=== PATIENT | female | born 1940 | race Caucasian/White ===

== ENCOUNTER 2019-12-06 12:39 | Inpatient (IN) | payer MEDICARE, BC ==
[~2019-12-06] VITALS: Ht 165.1 cm; Wt 56.5 kg
--- NOTE | 2019-12-06 13:13 | NUR ---
ED Nurse Note: Pt brought in by ambulance. Pt was with corporate intern today and corporate intern told ambulance that she almost fell, she caught pt, and pt vomited all over her clothes. Pt has hx of dementia. Pt is alert and orientedx0, ambulatory with assist. Pt is set up on monitor. Pt speaks "yes, no" but not in response to questions. Pt is confused, unable to follow commands but cooperative.
--- NOTE | 2019-12-06 13:16 | Emergency Room Report ---
History of Present Illness General Chief Complaint: Syncope Source: EMS Present Illness HPI Patient is an 79-year-old female presents after syncopal episode. Patient was brought in by EMS. She denies any current pain. Patient states that she recalls events. History is markedly limited by patient's poor cooperation are poor historian Allergies: Coded Allergies: PENICILLINS (Verified Allergy, Unknown, 12/06/19) Patient History Past Medical History: see triage record Reviewed Nursing Documentation: PMH: Agreed; PSxH: Agreed Nursing Documentation-PMH Past Medical History: No History, Except For Hx Hypertension: Yes Hx Neurological Problems: Yes - Alzheimers Hx Cerebrovascular Accident: Yes Review of Systems All Other Systems: limited - Historian Physical Exam Vital Signs Date Time Temp Pulse Resp B/P (MAP) Pulse Ox O2 Delivery O2 Flow Rate FiO2 12/06/19 12:44 98.8 79 16 142/83 (102) 98 Room Air Sp02 EP Interpretation: reviewed, normal General Appearance: normal inspection, well appearing, no apparent distress, alert Head: atraumatic ENT: normal ENT inspection, hearing grossly normal, normal voice Neck: normal inspection, full range of motion, supple, no bony tend Respiratory: normal inspection, lungs clear, normal breath sounds, no respiratory distress, no retraction, no wheezing Cardiovascular #1: regular rate, rhythm, no edema Gastrointestinal: normal inspection, normal bowel sounds, non tender, soft, no guarding, no hernia Genitourinary: no CVA tenderness Musculoskeletal: normal inspection, back normal, normal range of motion Neurologic: alert, oriented x3, responsive, normal inspection Psychiatric: normal inspection, judgement/insight normal, mood/affect normal Medical Decision Making Diagnostic Impression: Primary Impression: Syncope Additional Impression: Lactic acidosis ER Course Patient presented for syncope. Differential diagnosis included but was not limited to arrhythmia, orthostatic hypotension, hypovolemia, vasovagal, anemia among others. Because of complexity of patient's case laboratory tests and imaging studies were ordered.Patient was given IV fluids. CT imaging showed no evidence of acute intracranial pathology. Lactic acid was noted to be somewhat elevated. Patient was empirically given Levaquin after blood cultures were obtained. Urinalysis showed no evidence of infection. Patient CBC was normal. Dr. Nanci Singh was contacted for inpatient management Labs Test 12/06/19 13:15 12/06/19 14:20 12/06/19 16:17 White Blood Count 9.8 K/UL (4.8-10.8) Red Blood Count 4.25 M/UL (4.20-5.40) Hemoglobin 13.7 G/DL (12.0-16.0) Hematocrit 39.3 % (37.0-47.0) Mean Corpuscular Volume 92 FL (80-99) Mean Corpuscular Hemoglobin 32.1 PG (27.0-31.0) Mean Corpuscular Hemoglobin Concent 34.8 G/DL (32.0-36.0) Red Cell Distribution Width 12.4 % (11.6-14.8) Platelet Count 317 K/UL (150-450) Mean Platelet Volume 6.2 FL (6.5-10.1) Neutrophils (%) (Auto) 77.5 % (45.0-75.0) Lymphocytes (%) (Auto) 13.9 % (20.0-45.0) Monocytes (%) (Auto) 5.3 % (1.0-10.0) Eosinophils (%) (Auto) 2.7 % (0.0-3.0) Basophils (%) (Auto) 0.6 % (0.0-2.0) Prothrombin Time 10.5 SEC (9.30-11.50) Prothromb Time International Ratio 1.0 (0.9-1.1) Activated Partial Thromboplast Time 25 SEC (23-33) D-Dimer 0.47 mg/L FEU (0.00-0.49) Sodium Level 143 MMOL/L (136-145) Potassium Level 3.6 MMOL/L (3.5-5.1) Chloride Level 106 MMOL/L (98-107) Carbon Dioxide Level 27 MMOL/L (21-32) Anion Gap 10 mmol/L (5-15) Blood Urea Nitrogen 12 mg/dL (7-18) Creatinine 1.0 MG/DL (0.55-1.30) Estimat Glomerular Filtration Rate mL/min (>60) Glucose Level 167 MG/DL (74-106) Calcium Level 8.9 MG/DL (8.5-10.1) Total Bilirubin 0.5 MG/DL (0.2-1.0) Aspartate Amino Transf (AST/SGOT) 12 U/L (15-37) Alanine Aminotransferase (ALT/SGPT) 14 U/L (12-78) Alkaline Phosphatase 105 U/L (46-116) Troponin I 0.009 ng/mL (0.000-0.056) Pro-B-Type Natriuretic Peptide 185 pg/mL (0-125) Total Protein 7.0 G/DL (6.4-8.2) Albumin 3.8 G/DL (3.4-5.0) Globulin 3.2 g/dL Albumin/Globulin Ratio 1.2 (1.0-2.7) Lipase 143 U/L (73-393) Thyroid Stimulating Hormone (TSH) 6.174 uiU/mL (0.358-3.740) Urine Color Pale yellow Urine Appearance Clear Urine pH 8 (4.5-8.0) Urine Specific [place] 1.010 (1.005-1.035) Urine Protein Negative (NEGATIVE) Urine Glucose (UA) Negative (NEGATIVE) Urine Ketones Negative (NEGATIVE) Urine Blood Negative (NEGATIVE) Urine Nitrite Negative (NEGATIVE) Urine Bilirubin Negative (NEGATIVE) Urine Urobilinogen Normal MG/DL (0.0-1.0) Urine Leukocyte Esterase Negative (NEGATIVE) Urine RBC 0-2 /HPF (0 - 2) Urine WBC 0-2 /HPF (0 - 2) Urine Squamous Epithelial Cells Few /LPF (NONE/OCC) Urine Amorphous Sediment Few /LPF (NONE) Urine Bacteria Moderate /HPF (NONE) Lactic Acid Level 1.40 mmol/L (0.66-2.22) EKG Diagnostic Results Rate: normal Rhythm: NSR ST Segments: no acute changes Last Vital Signs Date Time Temp Pulse Resp B/P (MAP) Pulse Ox O2 Delivery O2 Flow Rate FiO2 12/06/19 12:44 98.8 79 16 142/83 (102) 98 Room Air Status: improved Disposition: ADMITTED INPATIENT Condition: Stable Eric Barrera MD Dec 06, 2019 13:16
[2019-12-06 13:30] VITALS: BP 135/76
[2019-12-06 13:44] LABS: BASOPHILS % (AUTO) 0.6 % (0.0-2.0); EOSINOPHILS % (AUTO) 2.7 % (0.0-3.0); HEMATOCRIT 39.3 % (37.0-47.0); HEMOGLOBIN 13.7 G/DL (12.0-16.0); LYMPHOCYTES % (AUTO) 13.9 % (20.0-45.0); MEAN CORPUSCULAR VOLUME 92 FL (80-99); MONOCYTES % (AUTO) 5.3 % (1.0-10.0); NEUTROPHILS % (AUTO) 77.5 % (45.0-75.0); PLATELET COUNT 317 K/UL (150-450); RED BLOOD COUNT 4.25 M/UL (4.20-5.40); RED CELL DISTRIBUTION WIDTH 12.4 % (11.6-14.8); WHITE BLOOD COUNT 9.8 K/UL (4.8-10.8)
[2019-12-06 14:11] LABS: ANION GAP 10 mmol/L (5-15); BLOOD UREA NITROGEN 12 mg/dL (7-18); CALCIUM 8.9 MG/DL (8.5-10.1); CARBON DIOXIDE 27 MMOL/L (21-32); CHLORIDE 106 MMOL/L (98-107); POTASSIUM 3.6 MMOL/L (3.5-5.1); SODIUM 143 MMOL/L (136-145)
[2019-12-06 14:24] LABS: ALANINE AMINOTRANSFERASE 14 U/L (12-78); ALBUMIN 3.8 G/DL (3.4-5.0); ALBUMIN/GLOBULIN RATIO 1.2 (1.0-2.7); ALKALINE PHOSPHATASE 105 U/L (46-116); ASPARTATE AMINO TRANSFERASE 12 U/L (15-37); BILIRUBIN,TOTAL 0.5 MG/DL (0.2-1.0)
[2019-12-06 15:12] LABS: APPEARANCE,URINE CLEAR; BILIRUBIN, URINE NEGATIVE (NEGATIVE); COLOR,URINE PALE YELLOW; GLUCOSE, URINE (UA) NEGATIVE (NEGATIVE); KETONES,URINE NEGATIVE (NEGATIVE); LEUKOCYTE ESTERASE ,URINE NEGATIVE (NEGATIVE); NITRITE,URINE NEGATIVE (NEGATIVE); PH,URINE 8 (4.5-8.0); PROTEIN,URINE NEGATIVE (NEGATIVE); UROBILINOGEN,URINE NORMAL MG/DL (0.0-1.0)
--- NOTE | 2019-12-06 15:41 | Diagnostic Imaging Report ---
EXAM: CT Head Without Intravenous Contrast CLINICAL HISTORY: AMS TECHNIQUE: Axial computed tomography images of the head/brain without intravenous contrast. CTDI is 62.7 mGy and DLP is 1332.7 mGy-cm. One or more of the following dose reduction techniques were used: automated exposure control, adjustment of the mA and/or kV according to patient size, use of iterative reconstruction technique. COMPARISON: No relevant prior studies available. FINDINGS: Brain: No intracranial hemorrhage or mass effect. Chronic left basal ganglia lacunar infarct involving the caudate nucleus and internal capsule. No clear acute large vessel territorial infarct. Generalized involutional and microvascular ischemic changes.. Ventricles: Unremarkable. No ventriculomegaly. Bones/joints: Unremarkable. No acute fracture. Soft tissues: Unremarkable. Sinuses: Unremarkable as visualized. No acute sinusitis. Mastoid air cells: Unremarkable as visualized. No mastoid effusion. IMPRESSION: No acute intracranial process. Involutional and microvascular ischemic changes.
--- NOTE | 2019-12-06 16:17 | NUR ---
ED Nurse Note: Reflex lactic sent.
--- NOTE | 2019-12-06 16:22 | Diagnostic Imaging Report ---
EXAM: XR Chest, 1 View CLINICAL HISTORY: SOB TECHNIQUE: Frontal view of the chest. COMPARISON: No relevant prior studies available. FINDINGS: Lungs: Mild left basilar atelectasis. No consolidation. Pleural space: Unremarkable. No pneumothorax. Heart: Unremarkable. No cardiomegaly. Mediastinum: Calcified aorta. Bones/joints: Degenerative changes. IMPRESSION: Mild left basilar atelectasis. No consolidation.
--- NOTE | 2019-12-06 16:45 | NUR ---
ED Nurse Note: Pt transferred to Tele floor. Pt has all belongings. Pt taken up with monitor. Pt alert and orientedx0.
--- NOTE | 2019-12-06 18:50 | NUR ---
NURSE NOTES: Patient stable AOx0. Verbal response is inappropriate or none at all and laughs at random intervals. desk monitor placed on new and david to be NSR. RR even and unlabored on RA. No s/sx of distress. Lung sounds clear. Bowel sounds present. Clothes and cane at bedside. Bed low and locked. Bed alarm on. Side rails up x2, call light within reach. Fall precautions on including yellow gown, yellow socks and sign up. Will continue to monitor.
--- NOTE | 2019-12-06 19:21 | NUR ---
HAND-OFF: Report given to Norberto Shelton RN. Patient stable. Endorsed plan of care.
--- NOTE | 2019-12-06 19:22 | NUR ---
HAND-OFF: Report given to Victor Manuel Gusman RN. Patient stable. Endorsed plan of care.
--- NOTE | 2019-12-06 19:30 | NUR ---
NURSE NOTES: Received patient from Yun YOUNG. Patient in bed, on room air, no signs of respiratory distress. Bed in low position, locked, bed alarm on, call light within reach. Patient is awake, alert but confused, oriented to self.
[2019-12-06 20:00] VITALS: BP 147/80
[2019-12-07] VITALS: BP 138/71
[2019-12-07 04:00] VITALS: BP 144/71
--- NOTE | 2019-12-07 06:16 | NUR ---
NURSE NOTES: Patient keeps getting out of bed, not redirectable, disoriented, cannot make needs known. Just laughs at staff when asked what she needs. Notified Dr. Dumont and left message regarding patient's agitation.
[2019-12-07 08:00] VITALS: BP 136/58
[2019-12-07 08:06] LABS: BASOPHILS % (AUTO) 0.5 % (0.0-2.0); EOSINOPHILS % (AUTO) 5.2 % (0.0-3.0); HEMATOCRIT 38.9 % (37.0-47.0); HEMOGLOBIN 13.8 G/DL (12.0-16.0); LYMPHOCYTES % (AUTO) 19.8 % (20.0-45.0); MEAN CORPUSCULAR VOLUME 92 FL (80-99); MONOCYTES % (AUTO) 7.2 % (1.0-10.0); NEUTROPHILS % (AUTO) 67.3 % (45.0-75.0); PLATELET COUNT 284 K/UL (150-450); RED BLOOD COUNT 4.24 M/UL (4.20-5.40); RED CELL DISTRIBUTION WIDTH 12.9 % (11.6-14.8); WHITE BLOOD COUNT 6.5 K/UL (4.8-10.8)
[2019-12-07 08:49] LABS: ALANINE AMINOTRANSFERASE 15 U/L (12-78); ALBUMIN 3.7 G/DL (3.4-5.0); ALBUMIN/GLOBULIN RATIO 1.1 (1.0-2.7); ALKALINE PHOSPHATASE 114 U/L (46-116); ANION GAP 8 mmol/L (5-15); ASPARTATE AMINO TRANSFERASE 12 U/L (15-37); BILIRUBIN,TOTAL 0.7 MG/DL (0.2-1.0); BLOOD UREA NITROGEN 13 mg/dL (7-18); CALCIUM 8.7 MG/DL (8.5-10.1); CARBON DIOXIDE 29 MMOL/L (21-32); CHLORIDE 106 MMOL/L (98-107); CREATININE 0.8 MG/DL (0.55-1.30); POTASSIUM 3.6 MMOL/L (3.5-5.1); SODIUM 143 MMOL/L (136-145)
[2019-12-07 12:00] VITALS: BP 151/98
[2019-12-07] MEDS ORDERED: AMLODIPINE BESY10 MG ORAL (15:07)
[2019-12-07] MEDS ORDERED: ASPIRIN EC81 MG ORAL (15:07)
[2019-12-07] MEDS ORDERED: MIDODRINE HCL5 MG ORAL (15:07)
[2019-12-07 16:00] VITALS: BP 155/79
--- NOTE | 2019-12-07 16:30 | Consultation ---
DATE OF CONSULTATION: 12/07/2019 INFECTIOUS DISEASES CONSULTATION CONSULTING PHYSICIAN: Rachid Bass M.D. PRIMARY ATTENDING PHYSICIAN: Nanci Castañeda M.D. REASON FOR CONSULTATION: Lactic acidosis. HISTORY OF PRESENT ILLNESS: This is an 79-year-old white female admitted last night because of presyncope. According to the EMS note, the patient was walking suddenly, sit down and vomited. The patient had lactic acidosis. Otherwise had no fever. No tachycardia. The patient had Alzheimer's dementia, is not source of history. PAST MEDICAL HISTORY: History of dementia, hypertension, hypothyroidism. ALLERGIES: Allergic to penicillin. MEDICATIONS: Getting levothyroxine, Remeron, Keppra, Seroquel, Levaquin in ER. SOCIAL HISTORY: Single, lives at home. No other history obtainable from the patient. PHYSICAL EXAMINATION: VITAL SIGNS: Temperature 97.7, pulse 72, blood pressure 136/58. GENERAL APPEARANCE: No acute distress. HEAD AND NECK: [place] conjunctivae. No oral lesion. Has dentures. HEART: Normal rate. LUNGS: Clear. ABDOMEN: Soft and nontender. EXTREMITIES: No edema. NEUROLOGIC: Awake, alert, elated mood and laughing constantly. LABORATORY AND DIAGNOSTIC DATA: Sodium 143, potassium 3.6, chloride 106, bicarbonate 29, BUN 13, creatinine 0.8. WBC 6.5, hemoglobin 13.8, hematocrit 38.9, platelets 284. CT scan of the head, no acute intracranial process, microvascular involutional ischemic changes. Chest x-ray, mild left basilar atelectasis, no consolidation. IMPRESSION: 1. Presyncope. 2. Acidosis that resolved. 3. Hypertension. 4. Alzheimer's dementia. 5. Hypothyroidism. RECOMMENDATION: Observe off antibiotic. At the end of my exam, I thank Dr. Castañeda, for involving in the care of this patient. Rachid Bass M.D. DR: Tal JOB#: [id number] CC: DANIS
[2019-12-07 20:00] VITALS: BP 135/77
--- NOTE | 2019-12-07 20:00 | NUR ---
NURSE NOTES: RECEIVED PATIENT LYING IN BED, EYES CLOSED, AWAKENED TO NAME, NO SIGNS AND SYMPTOMS OF PAIN. NO SIGNS AND SYMPTOMS OF ACUTE CARDIO RESPIRATORY DISTRESS/SHORTNESS OF BREATH, NO PERIPHERAL EDEMA NOTED. NO SIGNS AND SYMPTOMS OF ACUTE CARDIO RESPIRATORY DISTRESS/SHORTNESS OF BREATH, NO REPORT OF SYNCOPAL EPISODE. SEIZURE PRECAUTIONS OBSERVED/SIDE RAILS PADDED. ABDOMEN SOFT/NON DISTENDED, AUDIBLE BOWEL SOUNDS, NO N/V/DIARRHEA. SIDE RAILS UP X3/BED IN LOWEST POSITION FOR SAFETY. FALL PRECAUTIONS OBSERVED/BED ALARM ACTIVATED. FREQUENT ROUNDING FOR SAFETY/NEEDS. NAD.
--- NOTE | 2019-12-07 22:15 | History and Physical Report ---
DATE OF ADMISSION: 12/06/2019 HISTORY OF PRESENT ILLNESS: The patient is here being admitted for near-syncope, presyncope. The patient is a poor historian. We are not sure whether the patient had syncopal episode or not, but fell down. The patient is a poor historian, so cannot get from the patient whether the patient actually passed out or not. The patient also has history of dementia. 911 was called because the patient was on the floor and for near-syncope. The patient also has elevated lactic acidosis. Antibiotic was given. The patient has been treated for sepsis in the emergency room. Again, cannot get any history from the patient. Apparently, the patient has history of seizures, history of hypertension, history of possible psychosis needs to be confirmed. PAST SURGICAL HISTORY: Right hip replacement, back surgery. ALLERGIES: To penicillin. MEDICATIONS: Keppra, amlodipine, aspirin. FAMILY HISTORY: Noncontributory. SOCIAL HISTORY: . The patient has history of smoking. No history of alcohol or illicit drugs. Lives at home with daughter and . REVIEW OF SYSTEMS: HEENT: Denies headaches. RESPIRATORY: Denies shortness of breath. Denies cough. CARDIOVASCULAR: Denies chest pain. GASTROINTESTINAL: Denies nausea, vomiting, or diarrhea. EXTREMITIES: Denies pain. CENTRAL NERVOUS SYSTEM: Denies changes in speech pattern, however, is a very poor historian, so history is unreliable. PHYSICAL EXAMINATION: VITAL SIGNS: Temperature 97.7, pulse is 65, blood pressure 138/71. HEENT: PERRLA. NECK: Supple. No lymphadenopathy. CHEST: Clear to auscultation. CARDIOVASCULAR: Regular rate and rhythm. No murmurs or extra sounds. GASTROINTESTINAL: Soft, nontender, nondistended. No organomegaly. EXTREMITIES: No edema. Moves all four extremities. Reflexes equal in both sides. Oriented to name only. LABORATORY DATA: WBC of 9.8, hemoglobin 13.7, platelets of 317. Sodium 143, potassium 3.6, BUN of 12, creatinine of 1, glucose of 167. TSH of 6.17. ASSESSMENT AND PLAN: Rule out sepsis, altered mental status, vomiting at home, presyncope, poor historian. I have consulted Dr. Rodrigues, Dr. Rachid Bass, Dr. Dumont to help with the management of the presumptive sepsis as well as for psychosis, dementia, and seizure control. Dr. Dumont and Dr. Rodrigues have been consulted for possible syncope workup. Nanci Castañeda M.D. DR: YAIR JOB#: [id number] CC:
[2019-12-08] VITALS: BP 138/83
[2019-12-08 04:00] VITALS: BP 136/78
--- NOTE | 2019-12-08 06:30 | NUR ---
NURSE NOTES: RESTED WELL, NO SIGNIFICANT CHANGE OF CONDITION NOTED THROUGHOUT THE NIGHT. SAFETY MAINTAINED. NAD.
--- NOTE | 2019-12-08 07:20 | NUR ---
HAND-OFF: Report given to HECTOR BRUNSON.
[2019-12-08 08:00] VITALS: BP 158/82
--- NOTE | 2019-12-08 08:00 | NUR ---
NURSE NOTES: Pt asleep in bed, breathing easily on room air. Vital signs stable with SR @ 76 on monitor. IV access left forearm flushed with 10 ml NS and locked. Bed left in low position, exit alarm set, side rails up x 3 and call light left near pt's hand.
--- NOTE | 2019-12-08 10:56 | Cardiac Electrophysiology PN ---
Subjective Subjective [id number] Objective Last 24 Hour Vital Signs Date Time Temp Pulse Resp B/P (MAP) Pulse Ox O2 Delivery O2 Flow Rate FiO2 12/08/19 04:00 65 12/08/19 04:00 98.1 64 20 136/78 (97) 97 12/08/19 00:00 65 12/08/19 00:00 98.0 70 20 138/83 (101) 95 12/07/19 21:00 Room Air 12/07/19 20:00 75 12/07/19 20:00 98.2 65 18 135/77 (96) 96 12/07/19 16:00 97.9 65 15 155/79 (104) 97 12/07/19 16:00 75 12/07/19 12:00 97.2 67 20 151/98 (115) 95 67 12/07/19 12:00 93 Intake and Output 12/07/19 12/08/19 19:00 07:00 Intake Total 354 ml 300 ml Balance 354 ml 300 ml Intake Oral 354 ml 300 ml # Voids 4 2 Microbiology Date/Time Source Procedure Growth Status 12/06/19 13:10 Blood Blood Culture - Preliminary NO GROWTH AFTER 24 HOURS Resulted 12/06/19 12:55 Blood Blood Culture - Preliminary NO GROWTH AFTER 24 HOURS Resulted 12/06/19 18:30 Nasal Nares MRSA Culture - Final NO METHICILLIN RESISTANT STAPH AUREUS... Complete 12/06/19 14:20 Urine,Clean Catch Urine Culture - Preliminary Gram Positive Cocci Resulted 12/06/19 18:30 Rectum VRE Culture - Final NO VANCOMYCIN RESISTANT ENTEROCOCCUS ... Complete 12/06/19 18:30 Rectum - Final NO CARBAPENEM-RESISTANT ENTEROBACTERI... Complete Alan Rodrigues MD Dec 08, 2019 10:56
--- NOTE | 2019-12-08 11:55 | Infectious Diseases Prog Note ---
Assessment/Plan Assessment/Plan IMPRESSION: 1. Presyncope. 2. Acidosis that resolved. 3. Hypertension. 4. Alzheimer's dementia. 5. Hypothyroidism. 6. Bacteriuria, ? UTI RECOMMENDATION: Start on PO Nitrofurantoin Subjective ROS Limited/Unobtainable: Yes Constitutional: Denies: fever Allergies: Coded Allergies: PENICILLINS (Verified Allergy, Unknown, 12/06/19) Objective Vital Signs Last 24 Hour Vital Signs Date Time Temp Pulse Resp B/P (MAP) Pulse Ox O2 Delivery O2 Flow Rate FiO2 12/08/19 04:00 65 12/08/19 04:00 98.1 64 20 136/78 (97) 97 12/08/19 00:00 65 12/08/19 00:00 98.0 70 20 138/83 (101) 95 12/07/19 21:00 Room Air 12/07/19 20:00 75 12/07/19 20:00 98.2 65 18 135/77 (96) 96 12/07/19 16:00 97.9 65 15 155/79 (104) 97 12/07/19 16:00 75 12/07/19 12:00 97.2 67 20 151/98 (115) 95 67 12/07/19 12:00 93 Height (Feet): 5 Height (Inches): 5.00 Weight (Pounds): 120 General Appearance: no acute distress HEENT: mucous membranes moist Respiratory/Chest: lungs clear Cardiovascular: normal rate Abdomen: soft, non tender Extremities: no edema Neurologic/Psychiatric: alert, responsive Microbiology Date/Time Source Procedure Growth Status 12/06/19 13:10 Blood Blood Culture - Preliminary NO GROWTH AFTER 24 HOURS Resulted 12/06/19 12:55 Blood Blood Culture - Preliminary NO GROWTH AFTER 24 HOURS Resulted 12/06/19 18:30 Nasal Nares MRSA Culture - Final NO METHICILLIN RESISTANT STAPH AUREUS... Complete 12/06/19 14:20 Urine,Clean Catch Urine Culture - Preliminary Gram Positive Cocci Resulted 12/06/19 18:30 Rectum VRE Culture - Final NO VANCOMYCIN RESISTANT ENTEROCOCCUS ... Complete 12/06/19 18:30 Rectum - Final NO CARBAPENEM-RESISTANT ENTEROBACTERI... Complete Current Medications Medications (Trade) Dose Ordered Sig/[place] Route PRN Reason Start Time Stop Time Status Last Admin Dose Admin Levetiracetam (Keppra) 500 mg Q12HR ORAL 2/2/20 21:00 01/06/20 20:59 12/08/19 09:50 Levothyroxine Sodium (Synthroid) 50 mcg DAILY@0630 ORAL 12/08/19 06:30 01/07/20 06:29 12/08/19 06:10 Mirtazapine (Remeron) 7.5 mg BEDTIME ORAL 12/07/19 21:00 01/06/20 20:59 12/07/19 21:55 Quetiapine Fumarate (SEROqueL) 25 mg 0900 ORAL 12/08/19 09:00 01/07/20 08:59 12/08/19 09:50 Quetiapine Fumarate (SEROqueL) 25 mg Q6H PRN ORAL Agitation 12/07/19 09:00 01/06/20 08:59 Rachid Bass MD Dec 08, 2019 11:55
[2019-12-08 12:00] VITALS: BP 126/70
--- NOTE | 2019-12-08 15:24 | NUR ---
CASE MANAGEMENT:REVIEW 79 YR OLD FEMALE BIBA FROM HOME CC: DIZZINESS. VOMITING PMH: ALZHEIMER'S SI: SYNCOPE. LACTIC ACIDOSIS 98.7 79 16 142/83 98% ON RA GLUCOSE+167 LACTIC ACID +2.50 TSH+6.174 IS: IV LEVAQUIN CT HEAD BLOOD CX : TO TELEMETRY
[2019-12-08 16:00] VITALS: BP 143/74
--- NOTE | 2019-12-08 17:00 | Consultation ---
DATE OF CONSULTATION: 12/08/2019 CARDIOLOGY CONSULTATION CONSULTING PHYSICIAN: Alan Rodrigues M.D. REFERRING PHYSICIAN: Nanci Castañeda M.D. REASON FOR CONSULTATION: Management of hypertension. HISTORY OF PRESENT ILLNESS: The patient is an 79-year-old lady with history of hypertension, hypothyroidism, and dementia who was admitted for presyncope. Per paramedics, the patient was walking and suddenly sat down and vomited. The patient was found to have lactic acidosis and was admitted and Cardiology consultation. At the time of my evaluation, the patient is pleasantly confused. Has not been able to provide any meaningful information. REVIEW OF SYSTEMS: Negative other than what was mentioned in history of present illness. PAST MEDICAL HISTORY: As mentioned above. FAMILY HISTORY: Noncontributory. SOCIAL HISTORY: She denies smoking or drink alcohol. PHYSICAL EXAMINATION: VITAL SIGNS: Blood pressure is 136/78, pulse 64, respirations 18, temperature 98.1. HEAD AND NECK: Showed no JVD. LUNGS: Coarse rhonchi. CARDIOVASCULAR: Regular S1 and S2 with no gallop. ABDOMEN: Soft. EXTREMITIES: No pitting edema. LABORATORY AND DIAGNOSTIC DATA: EKG showed sinus rhythm with no acute ST-T wave abnormalities. Labs show white count of 6.5, hematocrit 13.9, hematocrit 39, and platelet count 284. Sodium is 142, potassium 3.6, BUN of 13, creatinine 0.8, and glucose of 103. Lactic acid was 2.5, that went down to 1.4. First troponin is negative. ASSESSMENT AND PLAN: 1. Episode of loss of consciousness. Etiology not clear. First troponin is negative. Could be due to lactic acidosis, sepsis. We will repeat the troponin and repeat the EKG and echocardiogram for further evaluation. 2. Hypothyroidism, on Synthroid. 3. Seizure, on Keppra. 4. Dementia, on Seroquel. 5. Lactic acidosis. Further evaluation by Dr. Rachid Bass currently off antibiotic. Thank you very much for allowing me to participate in the care of this patient. Please do not hesitate to contact me for any questions regarding my evaluation. Case was discussed with Dr. Rachid Bass. Alan Rodrigues M.D. DR: RAVI JOB#: [id number] CC:
--- NOTE | 2019-12-08 19:27 | NUR ---
NURSE NOTES: Received pt from HECTOR Maradiaga. Pt is awake and resting in bed in no acute distress. Pt tolerating room air with hob elevated. Iv site intact. Bed locked in lowest position, bed alarm on, call light within reach. Will continue with plan of care.
[2019-12-08 20:00] VITALS: BP 142/79
--- NOTE | 2019-12-08 21:44 | General Progress Note ---
Assessment/Plan Problem List: (1) Lactic acidosis ICD Codes: E87.2 - Acidosis SNOMED: 27474746 (2) Syncope ICD Codes: R55 - Syncope and collapse SNOMED: 912472801 Status: progressing Assessment/Plan: afebrile poor historian ams reviewed chart and labs Subjective ROS Limited/Unobtainable: Yes Allergies: Coded Allergies: PENICILLINS (Verified Allergy, Unknown, 12/06/19) Objective Last 24 Hour Vital Signs Date Time Temp Pulse Resp B/P (MAP) Pulse Ox O2 Delivery O2 Flow Rate FiO2 12/08/19 16:00 98.3 65 18 143/74 (97) 96 12/08/19 16:00 65 12/08/19 12:00 98.1 73 18 126/70 (88) 96 12/08/19 12:00 73 12/08/19 09:00 Room Air 12/08/19 08:00 65 12/08/19 08:00 97.9 65 18 158/82 (107) 97 12/08/19 04:00 65 12/08/19 04:00 98.1 64 20 136/78 (97) 97 12/08/19 00:00 65 12/08/19 00:00 98.0 70 20 138/83 (101) 95 Intake and Output 12/07/19 12/08/19 19:00 07:00 Intake Total 354 ml 300 ml Balance 354 ml 300 ml Intake Oral 354 ml 300 ml # Voids 4 2 Laboratory Tests 12/08/19 11:50: D-Dimer 0.29 Height (Feet): 5 Height (Inches): 5.00 Weight (Pounds): 120 Neck: supple Cardiovascular: normal rate Respiratory/Chest: lungs clear Nanci Castañeda MD Dec 08, 2019 21:44
[2019-12-09] VITALS: BP 150/88
[2019-12-09 04:00] VITALS: BP 148/87
--- NOTE | 2019-12-09 05:00 | Consultation ---
DATE OF CONSULTATION: 12/08/2019 HISTORY OF PRESENT ILLNESS: This is an 79-year-old female with a history of right hip replacement and back surgery who has been admitted to the hospital for medical stabilization. The patient is a poor historian and is unable to provide a meaningful history. The patient also has a diagnosis of dementia. The patient has had episodes of agitation. PAST PSYCHIATRIC HISTORY: Dementia, anxiety disorder, on psychotropic medication. PAST MEDICAL HISTORY: Hypertension and hypothyroidism. ALLERGIES: Penicillin. SUBSTANCE ABUSE HISTORY: No known history of illicit drug use or alcohol. MENTAL STATUS EXAMINATION: The patient is alert, confused, and disoriented. Mood is agitated. Affect is flat. Thought process is concrete. Thought content, no suicidal or homicidal ideation. Cognition is impaired. Insight and judgment are impaired. ASSESSMENT: Dementia with behavior disturbance. PLAN: 1. Seroquel 25 mg p.o. in the morning. 2. Remeron 7.5 mg at bedtime. 3. PRN Seroquel. Annita Dumont M.D. DR: EMELY JOB#: [id number] CC:
--- NOTE | 2019-12-09 07:53 | NUR ---
NURSE NOTES: Received pt in bed, sleeping. RA. No s/s of distress/pain. IV on LAC 22g noted. Side rails x 3. Bed in the lowest, locked, and alarm on. Call light within reach. Will continue to monitor
[2019-12-09 08:00] VITALS: BP 150/82
--- NOTE | 2019-12-09 08:05 | Cardiac Electrophysiology PN ---
Assessment/Plan Assessment/Plan 1. Episode of loss of consciousness. Etiology not clear. First troponin is negative. FU troponins are pending Could be due to lactic acidosis, sepsis. EKG. Echocardiogram Nl EF 55% and no 2. Mild HTN. Add Norvasc 5 daily 3. Seizure, on Keppra. 4. Dementia, on Seroquel. 5. Lactic acidosis. On Abx by Dr. Rachid Bass 6. Hypothyroidism, on Synthroid. Subjective Subjective Alert in NAD. In SR. No CP or SOB. Echo EF 60% Objective Last 24 Hour Vital Signs Date Time Temp Pulse Resp B/P (MAP) Pulse Ox O2 Delivery O2 Flow Rate FiO2 12/09/19 04:00 96.1 56 16 148/87 (107) 97 12/09/19 04:00 56 12/09/19 00:00 96.1 60 18 150/88 (108) 97 12/09/19 00:00 60 12/08/19 21:00 Room Air 12/08/19 20:00 96.4 95 16 142/79 (100) 97 12/08/19 20:00 95 12/08/19 16:00 98.3 65 18 143/74 (97) 96 12/08/19 16:00 65 12/08/19 12:00 98.1 73 18 126/70 (88) 96 12/08/19 12:00 73 12/08/19 09:00 Room Air Intake and Output 12/08/19 12/09/19 19:00 07:00 Intake Total 600 ml Balance 600 ml Intake Oral 600 ml # Voids 1 2 Laboratory Tests Test 12/08/19 11:50 12/09/19 06:14 D-Dimer 0.29 mg/L FEU (0.00-0.49) Troponin I Pending Pro-B-Type Natriuretic Peptide Pending Thyroid Stimulating Hormone (TSH) Pending Microbiology Date/Time Source Procedure Growth Status 12/06/19 13:10 Blood Blood Culture - Preliminary NO GROWTH AFTER 48 HOURS Resulted 12/06/19 12:55 Blood Blood Culture - Preliminary NO GROWTH AFTER 48 HOURS Resulted 12/06/19 18:30 Nasal Nares MRSA Culture - Final NO METHICILLIN RESISTANT STAPH AUREUS... Complete 12/06/19 14:20 Urine,Clean Catch Urine Culture - Final Enterococcus Faecalis Complete 12/06/19 18:30 Rectum VRE Culture - Final NO VANCOMYCIN RESISTANT ENTEROCOCCUS ... Complete 12/06/19 18:30 Rectum - Final NO CARBAPENEM-RESISTANT ENTEROBACTERI... Complete Objective HEAD AND NECK: Showed no JVD. LUNGS: Coarse rhonchi. CARDIOVASCULAR: Regular S1 and S2 with no gallop. ABDOMEN: Soft. EXTREMITIES: No pitting edema. Alan Rodrigues MD Dec 09, 2019 08:05
--- NOTE | 2019-12-09 09:47 | Infectious Diseases Prog Note ---
Assessment/Plan Assessment/Plan IMPRESSION: 1. Presyncope. 2. Acidosis that resolved. 3. Hypertension. 4. Alzheimer's dementia. 5. Hypothyroidism. 6. Enterococcus UTI 7. Penicillin allergy RECOMMENDATION: Continue Nitrofurantoin Subjective ROS Limited/Unobtainable: Yes Constitutional: Reports: no symptoms Respiratory: Reports: no symptoms Gastrointestinal/Abdominal: Reports: no symptoms Allergies: Coded Allergies: PENICILLINS (Verified Allergy, Unknown, 12/06/19) Objective Vital Signs Last 24 Hour Vital Signs Date Time Temp Pulse Resp B/P (MAP) Pulse Ox O2 Delivery O2 Flow Rate FiO2 12/09/19 09:02 61 150/82 12/09/19 08:32 Room Air 12/09/19 08:00 96.9 61 17 150/82 (104) 98 12/09/19 04:00 96.1 56 16 148/87 (107) 97 12/09/19 04:00 56 12/09/19 00:00 96.1 60 18 150/88 (108) 97 12/09/19 00:00 60 12/08/19 21:00 Room Air 12/08/19 20:00 96.4 95 16 142/79 (100) 97 12/08/19 20:00 95 12/08/19 16:00 98.3 65 18 143/74 (97) 96 12/08/19 16:00 65 12/08/19 12:00 98.1 73 18 126/70 (88) 96 12/08/19 12:00 73 Height (Feet): 5 Height (Inches): 5.00 Weight (Pounds): 120 General Appearance: no acute distress HEENT: mucous membranes moist Respiratory/Chest: lungs clear Cardiovascular: normal rate Abdomen: soft, non tender Extremities: no edema Neurologic/Psychiatric: alert, responsive Microbiology Date/Time Source Procedure Growth Status 12/06/19 13:10 Blood Blood Culture - Preliminary NO GROWTH AFTER 48 HOURS Resulted 12/06/19 12:55 Blood Blood Culture - Preliminary NO GROWTH AFTER 48 HOURS Resulted 12/06/19 18:30 Nasal Nares MRSA Culture - Final NO METHICILLIN RESISTANT STAPH AUREUS... Complete 12/06/19 14:20 Urine,Clean Catch Urine Culture - Final Enterococcus Faecalis Complete 12/06/19 18:30 Rectum VRE Culture - Final NO VANCOMYCIN RESISTANT ENTEROCOCCUS ... Complete 12/06/19 18:30 Rectum - Final NO CARBAPENEM-RESISTANT ENTEROBACTERI... Complete Laboratory Tests Test 12/08/19 11:50 12/09/19 06:14 D-Dimer 0.29 mg/L FEU (0.00-0.49) Troponin I 0.003 ng/mL (0.000-0.056) Pro-B-Type Natriuretic Peptide 28 pg/mL (0-125) Thyroid Stimulating Hormone (TSH) 1.322 uiU/mL (0.358-3.740) Current Medications Medications (Trade) Dose Ordered Sig/[place] Route PRN Reason Start Time Stop Time Status Last Admin Dose Admin Amlodipine Besylate (Norvasc) 5 mg DAILY ORAL 12/09/19 09:00 01/08/20 08:59 12/09/19 09:02 Levetiracetam (Keppra) 500 mg Q12HR ORAL 12/07/19 21:00 01/06/20 20:59 12/09/19 09:02 Levothyroxine Sodium (Synthroid) 50 mcg DAILY@0630 ORAL 12/08/19 06:30 01/07/20 06:29 12/09/19 06:30 Mirtazapine (Remeron) 7.5 mg BEDTIME ORAL 12/07/19 21:00 01/06/20 20:59 12/08/19 21:00 Nitrofurantoin (Macrobid) 100 mg EVERY 12 HOURS ORAL 12/08/19 21:00 01/07/20 20:59 12/09/19 09:02 Quetiapine Fumarate (SEROqueL) 25 mg 0900 ORAL 12/08/19 09:00 01/07/20 08:59 12/08/19 09:50 Quetiapine Fumarate (SEROqueL) 25 mg Q6H PRN ORAL Agitation 12/07/19 09:00 01/06/20 08:59 Rachid Bass MD Dec 09, 2019 09:47
[2019-12-09 12:00] VITALS: BP 144/80
[2019-12-09 16:00] VITALS: BP 174/102
[2019-12-09] MEDS ORDERED: cloNIDine 0.2mg Tab ORAL PRN (16:15)
--- NOTE | 2019-12-09 18:33 | NUR ---
NURSE NOTES: Attempted calling the number that's on the patient's record, to get information on POA. was not able to reach anyone.
--- NOTE | 2019-12-09 19:23 | NUR ---
HAND-OFF: Report given to HECTOR Liu.
--- NOTE | 2019-12-09 19:24 | NUR ---
NURSE NOTES: Received pt from HECTOR Casanova. Pt is awake and resting in bed in no acute distress. Pt tolerating room air with hob elevated. Iv site intact. Bed locked in lowest position, bed alarm on, call light within reach. sitter at bedside. Will continue with plan of care.
[2019-12-09 20:00] VITALS: BP 111/71
--- NOTE | 2019-12-09 21:21 | General Progress Note ---
Assessment/Plan Problem List: (1) Lactic acidosis ICD Codes: E87.2 - Acidosis SNOMED: 63785755 (2) Syncope ICD Codes: R55 - Syncope and collapse SNOMED: 933530854 Status: progressing Assessment/Plan: afebrile poor historian ams reviewed chart and labs wandering and advance dementia so ordered sitter for safety needs snf for monitoring Subjective ROS Limited/Unobtainable: Yes Allergies: Coded Allergies: PENICILLINS (Verified Allergy, Unknown, 12/06/19) Objective Last 24 Hour Vital Signs Date Time Temp Pulse Resp B/P (MAP) Pulse Ox O2 Delivery O2 Flow Rate FiO2 12/09/19 17:49 174/102 12/09/19 16:00 97.2 81 18 174/102 (126) 97 12/09/19 16:00 93 12/09/19 12:00 97.3 65 18 144/80 (101) 97 12/09/19 12:00 70 12/09/19 09:02 61 150/82 12/09/19 08:32 Room Air 12/09/19 08:00 96.9 61 17 150/82 (104) 98 12/09/19 08:00 58 12/09/19 04:00 96.1 56 16 148/87 (107) 97 12/09/19 04:00 56 12/09/19 00:00 96.1 60 18 150/88 (108) 97 12/09/19 00:00 60 Intake and Output 12/08/19 12/09/19 19:00 07:00 Intake Total 600 ml Balance 600 ml Intake Oral 600 ml # Voids 1 2 Laboratory Tests 12/09/19 06:14: Troponin I 0.003, Pro-B-Type Natriuretic Peptide 28, Thyroid Stimulating Hormone (TSH) 1.322 Height (Feet): 5 Height (Inches): 5.00 Weight (Pounds): 120 General Appearance: confused Cardiovascular: normal rate Respiratory/Chest: lungs clear Abdomen: soft Nanci Castañeda MD Dec 09, 2019 21:21
[2019-12-10] VITALS: BP 87/56
[2019-12-10 04:00] VITALS: BP 145/77
--- NOTE | 2019-12-10 07:30 | NUR ---
NURSE NOTES: Received report and patient from HECTOR Liu. Patient is in bed resting, denies any pain at this time. Patient is A/Ox1 to name only, breathing even and unlabored, RA. No s/sx of acute distress noted. Patient is confused and non-compliance. Bed is on lowest position, bedside rails up x3. brakes engaged for safety, call light within reach. Sitter at bedside. Will continue with the plan of care.
--- NOTE | 2019-12-10 07:30 | NUR ---
HAND-OFF: Report given to HETCOR Calvin. Endorsed plan of care.
[2019-12-10 08:39] VITALS: BP 126/71
[2019-12-10] MEDS ORDERED: AMLODIPINE BESYL5 MG ORAL (10:03)
[2019-12-10] MEDS ORDERED: KEPPRA500 M4 ORAL (10:06)
[2019-12-10] MEDS ORDERED: SYNTHROID25 MCG ORAL (10:07)
[2019-12-10] MEDS ORDERED: MIRTAZAPINE7.5 MG ORAL (10:09)
[2019-12-10] MEDS ORDERED: MACROBID100 MG ORAL (10:10)
[2019-12-10] MEDS ORDERED: QUETIAPINE FUMA25 MG ORAL (10:11)
[2019-12-10] MEDS ORDERED: SEROQUEL25 MG ORAL (10:12)
--- NOTE | 2019-12-10 10:22 | Infectious Diseases Prog Note ---
Assessment/Plan Assessment/Plan IMPRESSION: 1. Presyncope. 2. Acidosis that resolved. 3. Hypertension. 4. Alzheimer's dementia. 5. Hypothyroidism. 6. Enterococcus UTI 7. Penicillin allergy RECOMMENDATION: May discontinue Nitrofurantoin Agree with discharge Subjective ROS Limited/Unobtainable: Yes Constitutional: Denies: fever Allergies: Coded Allergies: PENICILLINS (Verified Allergy, Unknown, 12/06/19) Objective Vital Signs Last 24 Hour Vital Signs Date Time Temp Pulse Resp B/P (MAP) Pulse Ox O2 Delivery O2 Flow Rate FiO2 12/10/19 09:00 Room Air 12/10/19 08:39 97.0 53 18 126/71 (89) 96 12/10/19 08:32 53 126/96 12/10/19 08:00 55 12/10/19 04:00 97.7 55 16 145/77 (99) 98 12/10/19 04:00 55 12/10/19 00:00 96.8 62 18 87/56 (66) 98 12/10/19 00:00 62 12/09/19 21:00 Room Air 12/09/19 20:00 97.5 90 18 111/71 (84) 98 12/09/19 20:00 90 12/09/19 17:49 174/102 12/09/19 16:00 97.2 81 18 174/102 (126) 97 12/09/19 16:00 93 12/09/19 12:00 97.3 65 18 144/80 (101) 97 12/09/19 12:00 70 Height (Feet): 5 Height (Inches): 5.00 Weight (Pounds): 124 General Appearance: no acute distress HEENT: mucous membranes moist Respiratory/Chest: lungs clear Cardiovascular: bradycardia Abdomen: soft, non tender Extremities: no edema Neurologic/Psychiatric: other - sleeping Current Medications Medications (Trade) Dose Ordered Sig/[place] Route PRN Reason Start Time Stop Time Status Last Admin Dose Admin Amlodipine Besylate (Norvasc) 5 mg DAILY ORAL 12/09/19 09:00 01/08/20 08:59 12/10/19 08:32 Clonidine HCl (Catapres tab) 0.2 mg Q2H PRN ORAL SBP > 170 12/09/19 16:15 01/08/20 16:14 12/09/19 17:49 Levetiracetam (Keppra) 500 mg Q12HR ORAL 12/07/19 21:00 01/06/20 20:59 12/10/19 08:31 Levothyroxine Sodium (Synthroid) 50 mcg DAILY@0630 ORAL 12/08/19 06:30 01/07/20 06:29 12/10/19 06:50 Mirtazapine (Remeron) 7.5 mg BEDTIME ORAL 12/07/19 21:00 01/06/20 20:59 12/09/19 21:20 Nitrofurantoin (Macrobid) 100 mg EVERY 12 HOURS ORAL 12/08/19 21:00 01/07/20 20:59 12/10/19 08:32 Quetiapine Fumarate (SEROqueL) 25 mg 0900 ORAL 12/08/19 09:00 01/07/20 08:59 12/10/19 08:34 Quetiapine Fumarate (SEROqueL) 25 mg Q6H PRN ORAL Agitation 12/07/19 09:00 01/06/20 08:59 12/09/19 17:49 Rachid Bass MD Dec 10, 2019 10:22
--- NOTE | 2019-12-10 12:05 | Cardiac Electrophysiology PN ---
Assessment/Plan Assessment/Plan 1. Episode of loss of consciousness. Etiology not clear. Ruled out for [place]. Could be due to lactic acidosis, sepsis. Echocardiogram Nl EF 55% and no 2. Mild HTN. On Norvasc 5 daily and prn Clonidine 3. Seizure, on Keppra. 4. Dementia, on Seroquel. 5. Lactic acidosis. On Abx by Dr. Rachid Bass 6. Hypothyroidism, on Synthroid. Subjective Subjective Alert in NAD. In SR. No CP or SOB. Echo EF 60%. Pleasantly confused. Sitter at bedside Objective Last 24 Hour Vital Signs Date Time Temp Pulse Resp B/P (MAP) Pulse Ox O2 Delivery O2 Flow Rate FiO2 12/10/19 09:00 Room Air 12/10/19 08:39 97.0 53 18 126/71 (89) 96 12/10/19 08:32 53 126/96 12/10/19 08:00 55 12/10/19 04:00 97.7 55 16 145/77 (99) 98 12/10/19 04:00 55 12/10/19 00:00 96.8 62 18 87/56 (66) 98 12/10/19 00:00 62 12/09/19 21:00 Room Air 12/09/19 20:00 97.5 90 18 111/71 (84) 98 12/09/19 20:00 90 12/09/19 17:49 174/102 12/09/19 16:00 97.2 81 18 174/102 (126) 97 12/09/19 16:00 93 Intake and Output 12/09/19 12/10/19 19:00 07:00 Intake Total 880 ml 110 ml Balance 880 ml 110 ml Intake Oral 880 ml 110 ml # Voids 6 1 # Bowel Movements 1 Objective HEAD AND NECK: No JVD. LUNGS: Coarse rhonchi. CARDIOVASCULAR: Regular S1 and S2 with no gallop. ABDOMEN: Soft. EXTREMITIES: No pitting edema. Alan Rodrigues MD Dec 10, 2019 12:05
[2019-12-10 12:21] VITALS: BP 96/62
[2019-12-10 16:00] VITALS: BP 108/74
[2019-12-10 16:13] VITALS: BP 105/64
--- NOTE | 2019-12-10 18:00 | NUR ---
NURSE NOTES: Patient is discharged home per MD order via private vehicle with patient's daughter. IV removed, no bleeding, no infiltration noted . Patient tolerated well. director of undergraduate admissions removed. All discharged protocols followed. Belonging list accounted for and signed by both patient daughter and nurse. Discharge education done and patient's daughter stated understanding. Patient is in stable condition.
--- NOTE | 2019-12-11 01:31 | Progress Note ---
DATE: 12/10/2019 SUBJECTIVE: The patient is doing well. More manageable. No behavior issues noted. The patient is walking around. MENTAL STATUS EXAMINATION: The patient is alert, confused, and disoriented. Mood is neutral. Affect is flat. Thought process is concrete. Thought content, no suicidal or homicidal ideation. Cognition is impaired. Insight and judgment is impaired. ASSESSMENT: Dementia with behavior disturbance. PLAN: 1. We will continue current medications. 2. Provide the patient with reality orientation and supportive therapy. Annita Dumont M.D. DR: STUART JOB#: [id number] CC:
--- NOTE | 2019-12-15 14:47 | Discharge Summary ---
Discharge Summary Discharge Summary _ DATE OF ADMISSION: 12/06/2019 DATE OF DISCHARGE: 12/10/2019 DISCHARGED BY: Dr. Castañeda REASON FOR ADMISSION: 79 years old female with past medical history of hypertension, CVA, Alzheimer dementia, presented after syncopal episode. Patient was unable to recall events. Vital signs were stable upon presentation Laboratory work-up revealed no leukocytosis ,stable hemoglobin ,hematocrit ,and platelet count. Lactic acid 2.5. Stable electrolytes and renal parameters. Glucose 157. Troponin 0.009, proBNP 185. Albumin 3.8. TSH 6.174. Urinalysis revealed moderate bacteria and no pyuria. EKG revealed sinus rhythm, no acute ischemic changes. CT of the head demonstrated no acute intracranial pathology. Chest x-ray revealed mild left basilar atelectasis. No consolidation. In emergency department patient received empiric antibiotics after being pancultured and admitted for further management. CONSULTANTS: designer/writer Dr. Tia FROST specialist Dr. Rachid Bass psychiatrist Dr. Dumont [facility] COURSE: Patient admitted to telemetry floor. Echocardiogram demonstrated preserved ejection fraction 55 to 60% with no evidence of wall motion abnormality. Right ventricular systolic pressure of 27. Repeated troponin was negative. Telemetry showed no evidence of acute ischemic changes , no arrhythmias. Patient was ruled out for acute myocardial infarction. Syncope could be possibly due to lactic acidosis as epr cardio. Blood pressure was managed with calcium channel grazyna. Clonidine was on board as needed for blood pressure spike. Seizure precaution maintained. Keppra continued. No evidence of seizure activity while in the hospital. Lactic acidosis resolved , repeated lactic acid 1.4. Blood cultures were negative . Urine culture revealed Enterococcus faecalis . Patient treated with nitrofurantoin. Patient remained afebrile, no leukocytosis and completed 3 days course of treatment for UTI. TSH was mildly elevated , dose of Synthroid was increased. Per psychiatrist, patient had dementia with behavioral disturbances. Psychiatric medication regimen optimized. Reality orientation and supportive therapy provided. Patient clinically stabilized and was ready for discharge home , accompanied by patient's daughter. FINAL DIAGNOSES: Syncopal episode Enterococcal UTI Bradycardia Hypothyroidism with elevated TSH Seizure disorder Hypertension Dementia with behavioral disturbances Lactic acidosis-resolved DISCHARGE MEDICATIONS: See Medication Reconciliation list. DISCHARGE INSTRUCTIONS: Patient was discharged home . Follow-up with a primary care provider in 1 week. I have been assigned to dictate discharge summary for this account. I was not involved in the patient's management. Sandra Laureano NP Dec 15, 2019 14:47
== END 2019-12-10 17:34 | disposition home or self-care (01) | DRG 690 ==
LOC: EDSEX 12:39 → EDBD 12:39 → EMR 13:40 → EDBEDREQ 16:07 → 2E 16:23
DX: N39.0 Urinary tract infection, site not specified (principal); E87.2 Acidosis; F02.81 Dementia in other diseases classified elsewhere, unspecified severity, with behavioral disturbance; G40.89 Other seizures; F03.91 Unspecified dementia, unspecified severity, with behavioral disturbance; G30.9 Alzheimer's disease, unspecified; R55 Syncope and collapse; Z88.0 Allergy status to penicillin; I10 Essential (primary) hypertension; E03.9 Hypothyroidism, unspecified; Z96.641 Presence of right artificial hip joint; F41.9 Anxiety disorder, unspecified; B95.2 Enterococcus as the cause of diseases classified elsewhere
CPT/HCPCS: 36415; 70450; 71045; 80053; 80299; 81001; 83605; 83690; 83880; 84443; 84484; 85025; 85379; 85610; 85730; 87040; 87081; 87086; 87181; 93005; 93306; 96365; 99285